=== PATIENT | male | born 1990 | race American Indian/Alaskan Native ===

== ENCOUNTER 2020-03-16 12:21 | Emergency (ER) | payer OTHER ==
--- NOTE | 2020-03-16 16:35 | XRay Report ---
LEFT SHOULDER 3 VIEWS INDICATION / CLINICAL INFORMATION: LEFT SHOULDER PAIN. COMPARISON: None available. FINDINGS: BONES/JOINT(S): No acute fracture or subluxation. No significant degenerative changes. No focal bone lesions. SOFT TISSUES: No significant abnormality. ADDITIONAL FINDINGS: None. Signer Name: Nico Zuleta MD Signed: 03/16/2020 4:31 PM Workstation Name: [id number]
--- NOTE | 2020-03-16 17:30 | Emergency Department Report ---
ED Upper Extremity Inj HPI - General Time Seen by Provider: 03/16/20 16:48 Source: patient Mode of arrival: Ambulatory Limitations: No Limitations - History of Present Illness Initial Comments: Patient is a 29-year-old male presents emergency room with complaints of left shoulder pain that began 2 days ago. He states that he was at work and he lifted something heavy and felt a popping sensation. He states that this morning when he woke up the pain was worse. He states that the pain is increased with movement. He denies any numbness or weakness. He is able to move the digits without any difficulty. He denies any other pain except for in the shoulder. He denies ever injuring the shoulder in the past. No past medical history is. No allergies to medications. Patient states that he did drive himself to the emergency department. - Related Data Previous Rx's Medication Instructions Recorded Last Taken Type Naproxen [EC-Naprosyn] 500 mg PO BID PRN #14 tablet. 03/16/20 Unknown Rx methOCARBAMOL [Robaxin TAB] 500 mg PO BID PRN #12 tab 03/16/20 Unknown Rx ED Review of Systems ROS: Stated complaint: Other details as noted in HPI Comment: All other systems reviewed and negative ED Past Medical Hx - Medications Home Medications: Home Medications Medication Instructions Recorded Confirmed Last Taken Type Naproxen [EC-Naprosyn] 500 mg PO BID PRN #14 tablet. 03/16/20 Unknown Rx methOCARBAMOL [Robaxin TAB] 500 mg PO BID PRN #12 tab 03/16/20 Unknown Rx ED Physical Exam - General Limitations: No Limitations General appearance: alert, in no apparent distress - Head Head exam: Present: atraumatic, normocephalic - Eye Eye exam: Present: normal appearance - ENT ENT exam: Present: mucous membranes moist - Neck Neck exam: Present: normal inspection, full ROM. Absent: tenderness - Extremities Exam Extremities exam: Present: other (ttp over the left anterior shoulder, mild ttp the left AC joint, FROM of the LUE, discomfort upon full flexion of the shoulder, no deformity, no edema, no ecchymosis, no skin tenting, clavicles are equal, no clavicular ttp, no sulcus sign, neurovascularly intact) - Neurological Exam Neurological exam: Present: alert, oriented X3 - Psychiatric Psychiatric exam: Present: normal affect, normal mood - Skin Skin exam: Present: warm, dry, intact ED Medical Decision Making - Radiology Data Radiology results: report reviewed LEFT SHOULDER 3 VIEWS INDICATION / CLINICAL INFORMATION: LEFT SHOULDER PAIN. COMPARISON: None available. FINDINGS: BONES/JOINT(S): No acute fracture or subluxation. No significant degenerative changes. No focal bone lesions. SOFT TISSUES: No significant abnormality. ADDITIONAL FINDINGS: None. Signer Name: Nico Zuleta MD Signed: 03/16/2020 4:31 PM Workstation Name: [id number] Transcribed By: KAYLIN Dictated By: Nico Zuleta MD Electronically Authenticated By: Nico Zuleta MD Signed Date/Time: 03/16/20 163 DD/ 29 TD/TT: - Medical Decision Making Patient is a 29-year-old male presents emergency room with complaints of left shoulder pain that began 2 days ago. He states that he was at work and he lifted something heavy and felt a popping sensation. He states that this morning when he woke up the pain was worse. He states that the pain is increased with movement. He denies any numbness or weakness. He is able to move the digits without any difficulty. He denies any other pain except for in the shoulder. He denies ever injuring the shoulder in the past. No past medical history is. No allergies to medications. Patient states that he did drive himself to the emergency department. please see vitals on nursing paperwork, as patient arrived to the ED during downtime. on exam: ttp over the left anterior shoulder, mild ttp the left AC joint, FROM of the LUE, discomfort upon full flexion of the shoulder, no deformity, no edema, no ecchymosis, no ski n tenting, clavicles are equal, no clavicular ttp, no sulcus sign, neurovascularly intact. XR left shoulder: BONES/JOINT(S): No acute fracture or subluxation. No significant degenerative changes. No focal bone lesions. SOFT TISSUES: No significant abnormality. ADDITIONAL FINDINGS: None. Patient given prescription for naproxen and Robaxin. Patient given a shoulder sling. Examination most likely consistent with shoulder sprain, advised patient that he would need to follow-up with orthopedic to rule out ligament/tendon injury given that he has discomfort with flexion of the shoulder. Advised patient Please take medication as prescribed. Do not drive or operate heavy machinery or work while taking muscle relaxer. May use ice pack, heating pad, rest, Epson salt bath. Please follow-up with a orthopedic doctor in the next 2 to 3 days, it is very important that you follow-up to rule out any injuries to the tendons or ligaments. Return to the emergency room for any new or worsening symptoms. - Differential Diagnosis strain, sprain, fx, dislocation Critical care attestation.: If time is entered above; I have spent that time in minutes in the direct care of this critically ill patient, excluding procedure time. ED Disposition Clinical Impression: Sprain of left shoulder Qualifiers: Encounter type: initial encounter Shoulder sprain type: unspecified sprain Qualified Code(s): S43.402A - Unspecified sprain of left shoulder joint, initial encounter Disposition: TO HOME OR SELFCARE Is pt being admited?: No Does the pt Need Aspirin: No Condition: Stable Instructions: Shoulder Sprain (ED) Additional Instructions: Please take medication as prescribed. Do not drive or operate heavy machinery or work while taking muscle relaxer. May use ice pack, heating pad, rest, Epson salt bath. Please follow-up with a orthopedic doctor in the next 2 to 3 days, i t is very important that you follow-up to rule out any injuries to the tendons or ligaments. Return to the emergency room for any new or worsening symptoms. Prescriptions: Naproxen [EC-Naprosyn] 500 mg PO BID PRN #14 tablet.dr BLAS Reason: pain methOCARBAMOL [Robaxin TAB] 500 mg PO BID PRN #12 tab PRN Reason: pain Referrals: ULISES PENA MD [Staff Physician] - 2-3 Days [facility] [Provider Group] - 2-3 Days Time of Disposition: 17:29 Print Language: SCOTTISH
== END 2020-03-16 18:12 | disposition home or self-care (01) ==
LOC: ED 12:21
DX: S43.402A Unspecified sprain of left shoulder joint, initial encounter (principal); Z79.899 Other long term (current) drug therapy; X50.0XXA Overexertion from strenuous movement or load, initial encounter; Y93.89 Activity, other specified; Y92.89 Other specified places as the place of occurrence of the external cause; Y99.8 Other external cause status
CPT/HCPCS: 99283